=== PATIENT | male | born 1990 | race African-American/Black ===

== ENCOUNTER 2022-08-28 12:40 | Emergency (ER) | payer OTHER ==
[2022-08-28 12:55] VITALS: BMI 22.3
[2022-08-28 16:34] VITALS: BP 135/75; PULSE 95; RESP 18; TEMP 98
== END 2022-08-28 15:30 | disposition home or self-care (01) ==
LOC: JER 12:40
DX: R07.89 Other chest pain (principal); S20.311A Abrasion of right front wall of thorax, initial encounter; V23.49XA Other motorcycle driver injured in collision with car, pick-up truck or van in traffic accident, initial encounter; Y93.55 Activity, bike riding
CPT/HCPCS: 71046-TC-FY; 99283-25